=== PATIENT | female | born 1990 | race Two or more races ===

== ENCOUNTER → 2024-01-27 10:58 | Outpatient (CLI) | payer OTHER | END | disposition home or self-care (01) | LOC: PRENATAL 10:58 | PROVIDERS: ATTEND Obstetrics & Gynecology Maternal & Fetal Medicine | DX: O36.80X0 Pregnancy with inconclusive fetal viability, not applicable or unspecified (principal); O24.911 Unspecified diabetes mellitus in pregnancy, first trimester; O46.91 Antepartum hemorrhage, unspecified, first trimester; O16.1 Unspecified maternal hypertension, first trimester; O09.521 Supervision of elderly multigravida, first trimester; O34.219 Maternal care for unspecified type scar from previous cesarean delivery; Z3A.09 9 weeks gestation of pregnancy ==

== ENCOUNTER → 2024-02-25 10:26 | Outpatient (CLI) | payer OTHER | END | disposition home or self-care (01) | LOC: PRENATAL 10:26 | PROVIDERS: ATTEND Obstetrics & Gynecology Maternal & Fetal Medicine | DX: O36.80X0 Pregnancy with inconclusive fetal viability, not applicable or unspecified (principal); O16.1 Unspecified maternal hypertension, first trimester; O09.521 Supervision of elderly multigravida, first trimester; O34.219 Maternal care for unspecified type scar from previous cesarean delivery; O99.211 Obesity complicating pregnancy, first trimester; O24.911 Unspecified diabetes mellitus in pregnancy, first trimester; Z36.9 Encounter for antenatal screening, unspecified; Z3A.13 13 weeks gestation of pregnancy ==

== ENCOUNTER → 2024-03-11 13:54 | Outpatient (CLI) | payer OTHER | END | disposition home or self-care (01) | LOC: PRENATAL 13:54 | PROVIDERS: ATTEND Obstetrics & Gynecology Maternal & Fetal Medicine | DX: O26.842 Uterine size-date discrepancy, second trimester (principal); O35.10X0 Maternal care for (suspected) chromosomal abnormality in fetus, unspecified, not applicable or unspecified; O16.2 Unspecified maternal hypertension, second trimester; O09.522 Supervision of elderly multigravida, second trimester; O34.219 Maternal care for unspecified type scar from previous cesarean delivery; O99.212 Obesity complicating pregnancy, second trimester; O24.912 Unspecified diabetes mellitus in pregnancy, second trimester; Z3A.15 15 weeks gestation of pregnancy ==

== ENCOUNTER 2024-03-23 06:10 | Inpatient (IN) | payer OTHER ==
[~2024-03-23] VITALS: Ht 165.1 cm; Wt 98.4 kg
[2024-03-23 00:52] VITALS: BP 170/70
[2024-03-23 06:44] VITALS: BP 144/72
[2024-03-23 07:30] VITALS: BP 136/74
[2024-03-23] MEDS ORDERED: SINGULAIR10 MG PO (07:30)
[2024-03-23] MEDS ORDERED: PROAIR DIGIHAL90 MCG IH (07:30)
[2024-03-23] MEDS ORDERED: HUMULIN N100 UNIT/2 SUBCUTANEO (07:31)
[2024-03-23] MEDS ORDERED: HUMULIN R100 UNIT/1 SUBCUTANEO (07:31)
[2024-03-23] MEDS ORDERED: LABETALOL HCL100 MG PO (07:32)
[2024-03-23 08:32] LABS: HEMATOCRIT 34.1 % (36.0-45.00); HEMOGLOBIN 11.5 g/dL (12.0-15.00); MEAN CELL VOLUME 75.5 fL (80.00-100.00); MEAN CORPUSCULAR HEMOGLOBIN 25.5 pg (27.00-32.0); MEAN CORPUSCULAR HGB CONC 33.8 g/dl (32.0-36.0); PLATELET COUNT 334 K/uL (150-450); RED BLOOD COUNT 4.51 M/uL (4.00-6.00); RED CELL DISTRIBUTION WIDTH 15.3 % (11.5-14.5)
[2024-03-23 08:44] LABS: URINE APPEARANCE Cloudy; URINE BILIRRUBIN Negative (NEGATIVE); URINE BLOOD Negative; URINE COLOR Dark Yellow; URINE GLUCOSE Negative (NEGATIVE); URINE KETONE Trace (NEGATIVE); URINE LEUKOCYTE Negative; URINE NITRATE Negative; URINE PROTEIN Trace (NEGATIVE); URINE UROBILINOGEN 0.2 E.U./dl
[2024-03-23 08:49] LABS: URINE EPITHELIAL CELLS 61.6 uL (0.0-38.8); URINE RBC 42.7 uL (0.0-20.8); URINE WBC 120.2 uL (0.0-23.2)
[2024-03-23] MEDS ORDERED: MISOPROSTOL 100 MCG TABLET BUCAL SCH (09:00)
[2024-03-23] MEDS ORDERED: MISOPROSTOL 100 MCG TABLET VAG SCH (09:00)
[2024-03-23 09:01] LABS: URINE BACTERIA > 9821.5 uL (0.0-1933); URINE CAST 1.22 uL (0.0-1.40)
[2024-03-23 09:12] LABS: INR 0.96; PARTIAL THROMBOPLASTIN TIME 27.4 SECONDS (22.0-34.0); PROTHROMBIN TIME 10.5 SECONDS (9.0-11.5)
[2024-03-23 09:30] LABS: URINE CRYSTALS MODERATE /HPF
[2024-03-23 11:07] VITALS: BP 152/71
[2024-03-23 15:23] VITALS: BP 130/100
[2024-03-23] MEDS ORDERED: INSULIN REGULAR, HUMAN 1,000 UNIT/10 ML UNITS SUBCUTANEO SCH (16:00)
[2024-03-23] MEDS ORDERED: PROMETHAZINE HCL 50 MG/ML AMPUL IM ONE (16:35)
[2024-03-23 16:40] VITALS: BP 151/60
[2024-03-23] MEDS ORDERED: PROMETHAZINE HCL 50 MG/ML AMPUL IV ONE (16:40)
[2024-03-23] MEDS ORDERED: LABETALOL HCL 100 MG TABLET PO SCH (17:00)
[2024-03-23] MEDS ORDERED: MEPERIDINE HCL/PF 50 MG/ML VIAL IV ONE (17:00)
[2024-03-23] MEDS ORDERED: INSULIN LISPRO 1,000 UNIT/10 ML UNITS SUBCUTANEO PRN (17:15)
[2024-03-23] MEDS ORDERED: MEPERIDINE HCL/PF 50 MG/ML VIAL IV PRN (20:45)
[2024-03-23] MEDS ORDERED: PROMETHAZINE HCL 25 MG/ML AMPUL IV PRN (20:45)
[2024-03-23] MEDS ORDERED: INSULIN NPH HUMAN ISOPHANE 1,000 UNITS/10 ML UNITS SUBCUTANEO SCH (21:00)
[2024-03-23] MEDS ORDERED: MISOPROSTOL 100 MCG TABLET BUCAL ONE (21:00)
[2024-03-24] VITALS (8 sets, daily range): BP systolic 104–129; BP diastolic 66–78
[2024-03-24] MEDS ORDERED: OXYTOCIN 20 UNITS/1000ML RL PIGGYBAG IV ONE (00:48)
[2024-03-24] MEDS ORDERED: ONDANSETRON HCL 2 MG/ML VIAL ONE (01:31)
[2024-03-24] MEDS ORDERED: IBUprofen 400 MG TABLET PO PRN (01:45)
[2024-03-24] MEDS ORDERED: ONDANSETRON HCL 2 MG/ML VIAL IV ONE (01:45)
[2024-03-24] MEDS ORDERED: OXYTOCIN 1,000 ML IV SCH (02:45)
[2024-03-24] MEDS ORDERED: INSULIN NPH HUMAN ISOPHANE 1,000 UNITS/10 ML UNITS SUBCUTANEO SCH (07:30)
[2024-03-24] MEDS ORDERED: INSULIN REGULAR, HUMAN 1,000 UNIT/10 ML UNITS SUBCUTANEO SCH (07:30)
[2024-03-24 08:42] LABS: HEMATOCRIT 33.3 % (36.0-45.00); HEMOGLOBIN 11.3 g/dL (12.0-15.00); MEAN CELL VOLUME 73.8 fL (80.00-100.00); MEAN CORPUSCULAR HEMOGLOBIN 25.1 pg (27.00-32.0); PLATELET COUNT 341 K/uL (150-450); RED BLOOD COUNT 4.51 M/uL (4.00-6.00); RED CELL DISTRIBUTION WIDTH 14.8 % (11.5-14.5)
[2024-03-24] MEDS ORDERED: PNV,CALCIUM 72/IRON/FOLIC ACID 1 TAB TABLET PO SCH (09:00)
[2024-03-24] MEDS ORDERED: MetFORMIN HCL 500 MG TABLET PO SCH (17:00)
[2024-03-25 01:14] VITALS: BP 100/60
[2024-03-25 06:31] VITALS: BP 110/65
[2024-03-25 08:00] VITALS: BP 116/72
[2024-03-25 10:52] VITALS: BP 116/77
== END 2024-03-25 09:22 | disposition home or self-care (01) | DRG 805 ==
LOC: LDR 06:10 → OB/GYN 03-24 02:47
PROVIDERS: ADMIT Obstetrics & Gynecology; ATTEND Obstetrics & Gynecology
PROC: 3E0DXGC Introduction of Other Therapeutic Substance into Mouth and Pharynx, External Approach (ICD-10-PCS; 2024-03-23)
PROC: 3E0P7VZ Introduction of Hormone into Female Reproductive, Via Natural or Artificial Opening (ICD-10-PCS; 2024-03-23)
PROC: 4A1HXCZ Monitoring of Products of Conception, Cardiac Rate, External Approach (ICD-10-PCS; 2024-03-23)
PROC: 10E0XZZ Delivery of Products of Conception, External Approach (ICD-10-PCS; principal; 2024-03-24)
PROC: 3E033VJ Introduction of Other Hormone into Peripheral Vein, Percutaneous Approach (ICD-10-PCS; 2024-03-24)
DX: O28.5 Abnormal chromosomal and genetic finding on antenatal screening of mother (principal); O41.1420 Placentitis, second trimester, not applicable or unspecified; O41.02X0 Oligohydramnios, second trimester, not applicable or unspecified; O02.89 Other abnormal products of conception; Z37.1 Single stillbirth; Z3A.17 17 weeks gestation of pregnancy; Z20.822 Contact with and (suspected) exposure to COVID-19